=== PATIENT | female | born 1945 | race Caucasian/White ===

== ENCOUNTER → 2024-05-09 | Outpatient (CLI) | payer MEDICARE ==
[2024-05-09 10:54] LABS: ALBUMIN 3.1 g/dL (3.5-5.0); BILIRUBIN,TOTAL 0.5 mg/dL (0.2-1.0); CREATININE 1.1 mg/dL (0.5-1.0); POTASSIUM 3.7 mmol/L (3.5-5.1); TOTAL PROTEIN, SERUM 6.2 g/dL (6.0-8.3)
== END | disposition home or self-care (01) ==
LOC: LAB 09:21
PROVIDERS: ATTEND Student in an Organized Health Care Education/Training Program
DX: E78.2 Mixed hyperlipidemia (principal); R94.31 Abnormal electrocardiogram [ECG] [EKG]
CPT/HCPCS: 36415; 80053; 80061

== ENCOUNTER → 2024-05-16 | Outpatient (CLI) | payer MEDICARE ==
[~2024-05-16] MED LIST: IOHEXOL-350 50ML VIAL IV ONE; IOHEXOL-350 75 ML VIAL IV ONE; metoPROLOL tartRATE 1 MG/ML 5ML VIAL IV ONE
--- NOTE | 2024-05-16 12:24 | HMCIMG ---
CT CARDIAC ANGIO W/CONT. CCTA REASON: ABNORMAL EKG,ECG COMPARISON: None TECHNIQUE: Images are obtained through the heart in the axial plane before and during bolus IV contrast infusion, 100 cc Omnipaque 350. 2-D and 3-D multiplanar reconstruction images were then performed. The injection had to be repeated once due to motion artifact on the first sequence, total contrast volume was 200 cc. FINDINGS: This dictation is for the noncardiac findings only. Cardiac and coronary artery findings are reported separately. Visualized portions of the lungs are clear. There is normal-appearing pulmonary interstitium. There is no hilar or mediastinal lymphadenopathy. Chest wall structures appear unremarkable. IMPRESSION: 1. Unremarkable noncardiac portions of CT cardiac angiography.
== END | disposition home or self-care (01) ==
LOC: RAH 10:49 → EDUNIT# 11:00
PROVIDERS: ATTEND Student in an Organized Health Care Education/Training Program
DX: R94.31 Abnormal electrocardiogram [ECG] [EKG] (principal)
CPT/HCPCS: 75574; J3490; Q9967 ×2

== ENCOUNTER 2024-09-16 16:13 | Emergency (ER) | payer MEDICARE ==
[~2024-09-16] VITALS: Ht 157.5 cm; Wt 64.4 kg
[2024-09-16 17:20] LABS: BASOPHILS # (AUTO) 0.14 K/uL (0.00-0.20); BASOPHILS % (AUTO) 1.8 % (0.0-5.0); EOSINOPHILS # (AUTO) 0.37 K/uL (0.00-0.70); EOSINOPHILS % (AUTO) 4.7 % (0.0-8.0); HEMATOCRIT 38.5 % (36-48); IMMATURE GRANULOCYTE ABSOLUTE 0.03 K/uL (0-1); LYMPHOCYTES % (AUTO) 25.9 % (21.0-51.0); MEAN CORPUSCULAR HEMOGLOBIN 30.3 pg (27.0-33.0); MEAN CORPUSCULAR HGB CONC 32.5 g/dL (32.0-36.0); MEAN CORPUSCULAR VOLUME 93.4 fL (79-99); MONOCYTES # (AUTO) 0.9 K/uL (0.1-1.0); MONOCYTES % (AUTO) 11.2 % (3.0-13.0); NEUTROPHILS # (AUTO) 4.4 K/uL (1.8-7.7); PLATELET COUNT (AUTO) 247 K/uL (130-400); RED BLOOD CELL COUNT(AUTO) 4.12 MIL/uL (4.00-5.50); RED CELL DISTRIBUTION WIDTH 13.8 % (11.0-15.5); WHITE BLOOD COUNT (AUTO) 7.9 K/uL (4.8-10.8)
[2024-09-16 17:32] LABS: CREATININE 1.1 mg/dL (0.5-1.0)
--- NOTE | 2024-09-16 19:33 | HMCIMG ---
Exam Type: US VENOUS DOPPLER UNILATERAL Clinical Information: r/o dvt Comparison: None Findings: The examination shows normal deep venous system. There is normal compressibility at all levels. There is no intraluminal clot. There is no occlusion. Adequate response is obtained on augmentation. Impression: No evidence of DVT.
[2024-09-16] MEDS ORDERED: CEPH500B PO (19:44)
--- NOTE | 2024-09-16 19:46 | ERN ---
ED Note History of Present Illness Stated Complaint: SENT BY DOCTOR Chief Complaint: Lower Extremity Pain/Injury Time Seen by MD: 16:24 Time Seen by Midlevel: 16:30 Dictation: 78-year-old female coming in referred by PCP for evaluation of right lower e xtremity pain onset a couple of weeks ago. Patient denies having any fevers, nausea, vomiting. Allergies: Coded Allergies: No Known Allergies (Unverified Allergy, Unknown, 09/16/24) Past Medical History Past Medical History: Asthma, High Cholesterol, Heart Disease, Hypertension, [place] Surgical History: Hysterectomy, Other Surgical History Other: ABD CYST Review of System Dictation Constitutional: Negative for fever,chills, and weight loss Eyes: Negative for injury, pain,redness, and discharge ENT: Negative for injury,pain or swelling Cardiovascular: Negative for chest pain, palpitations, and edema Respiratory: Negative for shortness of breath, cough, and wheezing, Abdomen/GI: Negative for abdominal pain, nausea, vomiting, diarrhea, and constipation Back: Negative for injury and pain : Negative for injury, bleeding and discharge MS/Extremity: Negative for injury and deformity, right lower leg swelling Skin: Negative for rash, and discoloration Neuro: Negative for headache, weakness, numbness, tingling, and seizure Psych: Negative for suicide ideation, homicidal ideation, and hallucinations Review of Systems: was completed Initial Vital Sign VS Vital Signs Date Time Temp Pulse Resp B/P (MAP) Pulse Ox O2 Delivery O2 Flow Rate FiO2 09/16/24 16:16 97.7 64 16 131/65 97 Room Air 0 Physical Exam Dictation General: awake, alert, NAD Head/Face: Normocephalic, atraumatic Eyes: PERRL, EOMI, vision at baseline ENT: oral cavity clear, TMs clear, no signs of infection Neck: Trachea midline, supple, no nuchal rigidity Cardiovascular: RRR, normal S1/S2, No MRGs, no JVD Respiratory: CTAB, no respiratory distress, No rales or wheezes Abdomen: Soft, non-tender, non-distended, normal bowel sounds, no guarding or rebound. Skin: Warm, dry, normal turgor, no rash, there is mild erythema noted to the right lower leg with swelling. No fluctuance, no open wound no discoloration MS/Extremity: Pulses equal, no cyanosis, neurovascular intact, FROM Neuro: COAx4, GCS 15, strength 5/5, CN 2-12 intact, normal cerebellar exam, normal gait, Psych: Normal behavior, mood, and affect normal Results (Laboratory/Radiology) Laboratory/Radiology Laboratory Tests Test 09/16/24 17:11 White Blood Count 7.9 K/uL (4.8-10.8) Red Blood Count 4.12 MIL/uL (4.00-5.50) Hemoglobin 12.5 g/dL (12.0-16.0) Hematocrit 38.5 % (36-48) Mean Corpuscular Volume 93.4 fL (79-99) Mean Corpuscular Hemoglobin 30.3 pg (27.0-33.0) Mean Corpuscular Hemoglobin Concent 32.5 g/dL (32.0-36.0) Red Cell Distribution Width 13.8 % (11.0-15.5) Platelet Count 247 K/uL (130-400) Mean Platelet Volume 11.0 fL (7.5-10.5) H Immature Granulocyte % (Auto) 0.4 % (0-1) Neutrophils (%) (Auto) 56.0 % (40.0-77.0) Lymphocytes (%) (Auto) 25.9 % (21.0-51.0) Monocytes (%) (Auto) 11.2 % (3.0-13.0) Eosinophils (%) (Auto) 4.7 % (0.0-8.0) Basophils (%) (Auto) 1.8 % (0.0-5.0) Neutrophils # (Auto) 4.4 K/uL (1.8-7.7) Lymphocytes # (Auto) 2.0 K/uL (1.0-4.8) Monocytes # (Auto) 0.9 K/uL (0.1-1.0) Eosinophils # (Auto) 0.37 K/uL (0.00-0.70) Basophils # (Auto) 0.14 K/uL (0.00-0.20) Absolute Immature Granulocyte (auto 0.03 K/uL (0-1) Nucleated Red Blood Cells 0.0 % (0.0-0.19) Sodium Level 144 mmol/L (136-145) Potassium Level 4.0 mmol/L (3.5-5.1) Chloride Level 107 mmol/L (101-111) Carbon Dioxide Level 31 mmol/L (21-32) Blood Urea Nitrogen 23 mg/dL (7-18) H Creatinine 1.1 mg/dL (0.5-1.0) H Glomerular Filtration Rate Calc 52 mL/min (>90) Random Glucose 80 mg/dL (70-105) Lactic Acid Level 1.1 mmol/L (0.8-2.5) Total Calcium 9.4 mg/dL (8.5-10.1) Labs Reviewed?: Yes ED Course ED Course Orders Procedure Category Date Status Time Cbc With Differential LAB 09/16/24 Complete 16:50 Basic Metabolic Panel LAB 09/16/24 Complete 16:50 Lactic Acid LAB 09/16/24 Complete 16:50 Blood Cult ZIA 09/16/24 In Process 16:50 Us Venous Doppler US 09/16/24 Resulted Unilateral 19:05 Vital Signs Date Time Temp Pulse Resp B/P (MAP) Pulse Ox O2 Delivery O2 Flow Rate FiO2 09/16/24 16:16 97.7 64 16 131/65 97 Room Air 0 Medical Decision Making MDM MDM: 78-year-old female coming in referred by PCP for evaluation of right lower extremity pain onset a couple of weeks ago. Patient denies having any fevers, nausea, vomiting. Blood work unremarkable. Patient does not have any white count. Ultrasound shows negative for DVT. Patient will be discharged with antibiotics to prevent possible early cellulitis. Discussed with the patient to start antibiotics in and if 2-3 days she isn't see difference to follow up with PCP. Patient verbalized understanding, answered all questions. Differential diagnosis: Cellulitis, DVT, insect bite Rationale: Tests considered and ordered secondary to shared decision making include: Previous outside records reviewed: Old ER visits. Risk of complication and/or morbidity or mortality of patient management: None Medications-Per medication reconciliation Need for hospitalization: Patient does not meet criteria for hospitalization. Need for emergency major/minor surgery: No There are no social concerns with this patient. Prescription drug management Prescriptions will include symptomatic care Patient's prior external medical records from other ER visits were reviewed by me as indicated. Prior testing and results from previous visits were reviewed. Prior tests were taken into account with medical decision making and resource utilization, independent historian/historians were used to obtain complete [facility] history. I independently interpreted the test that were performed, results were reviewed by me and considered findings on radiology if ordered. Medical management and examination interpretation discussions were had by me with other qualified healthcare professionals as indicated for the patient's care. DX & DISP Disposition: Discharge Departure Impression: Primary Impression: Cellulitis Condition: Stable Scripts Cephalexin Monohydrate (Keflex) 500 Mg Cap 500 MG PO QID for 5 Days, #28 CAP Prov: NADIA FARMER COMMUTATOR INSPECTOR 09/16/24 Additional Instructions: Start your antibiotics. If no change in 1-2 days please follow up with your PCP. Referrals: SELF,THERESA Garcia MD (PCP) Time of Disposition: 19:45 I have reviewed the case, and I agree with, Diagnosis and Plan NADIA FARMER NP September 16, 2024 19:46
[2024-09-16 19:51] VITALS: BP 129/68; PULSE 71; RESP 18; TEMP 97.8; O2SAT 99
== END 2024-09-16 19:52 | disposition home or self-care (01) ==
LOC: EDH 16:13
DX: L03.115 Cellulitis of right lower limb (principal); J45.909 Unspecified asthma, uncomplicated; E78.00 Pure hypercholesterolemia, unspecified; I10 Essential (primary) hypertension; I25.2 Old myocardial infarction; Z90.710 Acquired absence of both cervix and uterus
CPT/HCPCS: 36415; 80048; 83605; 85025; 87040; 93971; 99284

== ENCOUNTER 2024-10-01 16:25 | Emergency (ER) | payer MEDICARE ==
[~2024-10-01] VITALS: Ht 157.5 cm; Wt 67.1 kg
[~2024-10-01 16:25] MED LIST changes: +CEPH500B PO; -IOHEXOL-350 50ML VIAL IV ONE; -IOHEXOL-350 75 ML VIAL IV ONE; -metoPROLOL tartRATE 1 MG/ML 5ML VIAL IV ONE
[2024-10-01 17:08] LABS: PROTHROMBIN TIME 10.6 SEC (9.6-11.6)
[2024-10-01 17:10] LABS: PARTIAL THROMBOPLASTIN TIME 26.5 SEC (26.3-35.5)
[2024-10-01 17:11] LABS: BASOPHILS # (AUTO) 0.12 K/uL (0.00-0.20); BASOPHILS % (AUTO) 1.6 % (0.0-5.0); EOSINOPHILS # (AUTO) 0.28 K/uL (0.00-0.70); EOSINOPHILS % (AUTO) 3.7 % (0.0-8.0); HEMATOCRIT 38.1 % (36-48); IMMATURE GRANULOCYTE ABSOLUTE 0.02 K/uL (0-1); LYMPHOCYTES # (AUTO) 1.9 K/uL (1.0-4.8); LYMPHOCYTES % (AUTO) 25.5 % (21.0-51.0); MEAN CORPUSCULAR HEMOGLOBIN 29.6 pg (27.0-33.0); MEAN CORPUSCULAR VOLUME 92.5 fL (79-99); NEUTROPHILS # (AUTO) 4.2 K/uL (1.8-7.7); NEUTROPHILS % (AUTO) 55.9 % (40.0-77.0); PLATELET COUNT (AUTO) 212 K/uL (130-400); RED BLOOD CELL COUNT(AUTO) 4.12 MIL/uL (4.00-5.50); RED CELL DISTRIBUTION WIDTH 14.1 % (11.0-15.5); WHITE BLOOD COUNT (AUTO) 7.5 K/uL (4.8-10.8)
[2024-10-01 17:15] LABS: MAGNESIUM 1.7 mg/dL (1.80-2.40)
--- NOTE | 2024-10-01 17:16 | HMCIMG ---
PORTABLE CHEST RADIOGRAPH INDICATION: CP COMPARISON: None FINDINGS: Heart size is normal. Mild calcific plaque is present along the aortic arch montiel. The pulmonary vascularity and power appear normal. No abnormal pulmonary parenchymal opacity or consolidation identified. No significant pleural effusion noted. No pneumothorax detected. IMPRESSION: No radiographic evidence for any acute cardiopulmonary process.
[2024-10-01 17:30] LABS: B-TYPE NATRIURETIC PEPTIDE 270 pg/mL (0-100)
[2024-10-01 17:34] LABS: APPEARANCE,URINE CLEAR (CLEAR); BILIRUBIN,URINE NEGATIVE (NEGATIVE); COLOR,URINE LIGHT-YELLOW (YELLOW); GLUCOSE, URINE (UA) NEGATIVE (NEGATIVE); KETONES,URINE NEGATIVE (NEGATIVE); LEUKOCYTE ESTERASE ,URINE NEGATIVE Leu/uL (NEGATIVE); NITRATE,URINE NEGATIVE (NEGATIVE); OCCULT BLOOD,URINE NEGATIVE (NEGATIVE); PH,URINE 6.5 (5.0-8.0); PROTEIN,URINE NEGATIVE (NEGATIVE); UROBILINOGEN,URINE 0.2 mg/dL (0.2-1.0)
[2024-10-01 17:44] LABS: ADD UA MICROSCOPIC NO
--- NOTE | 2024-10-01 18:17 | ERN ---
General Chief Complaint: Shortness of Breath Stated Complaint: SOB Time Seen by MD: 16:30 Source: patient History of Present Illness Initial Comments Patient is a 78-year-old female coming in with shortness of breath. Patient states he has a history of asthma and frequently presents with shortness of breath. Today she states he fell worse EMS put her on 2 L of oxygen as he st ates he does not use oxygen at home. Allergies: Coded Allergies: No Known Allergies (Unverified Allergy, Unknown, 09/16/24) Home Meds Active Scripts Cephalexin Monohydrate (Keflex) 500 Mg Cap, 500 MG PO QID for 5 Days, #28 CAP Prov:NADIA FARMER FARMWORKER GRAIN 09/16/24 Past Medical History Past Medical History: Asthma, High Cholesterol, Hypertension Past Surgical History: Other Surgical History Other: CYST REMOVAL ROS Dictation CONSTITUTIONAL: No chills, no fever, no weakness, no diaphoresis, no malaise. HEAD/FACE: No signs of trauma. EENT: No eye pain, no blurred vision, no tearing, no double vision, no ear pain, no ear discharge, no nose pain, no nasal congestion, no throat pain, no throat swelling, no mouth pain. RESPIRATORY: No cough, no orthopnea, no SOB, no stridor, wheezing. CARDIOVASCULAR: No chest pain, no edema, no palpitations, no syncope. GASTROINTESTINAL/ABDOMINAL: No abdominal pain, no constipation, no diarrhea, no nausea, no vomiting. GENITOURINARY: No abnormal discharge, no dysuria, no frequent urination, no hematuria. No complaints of pain in the genitals. MUSCULOSKELETAL: No back pain, no gout, no joint pain, no joint swelling, no muscle pain, no muscle stiffness, no neck pain. INTEGUMENTARY: No change in color, no change in hair/nails, no dryness, no lesion, no lumps, no rash. NEUROLOGICAL/PSYCH: No anxiety, not depressed, no emotional problem, no headache, no numbness, no pre-existing deficit, no history of seizures, no tremors, no weakness. HEMATOLOGIC/LYMPHATIC: Not anemic, no history of blood clots, no apparent bleeding, no bruising, glands not swollen. All Systems Negative, Except as Noted. Physical Exam Physical Exam Dictation VITAL SIGNS: Reviewed. GENERAL APPEARANCE: Alert, oriented x3, no acute distress, obese. HEAD AND FACE: Non-traumatic. EYES: PERRL, pink conjunctivas, eyelid no trauma, anterior chamber clear. EARS: Pinnas intact and no signs of trauma or erythema. Ear canals clear and no discharge. TMs no erythema. NOSE: No discharge, no bleeding. OROPHARYNX: Mouth normal, teeth no caries, tongue pink. Pharynx clear, no erythema. Tonsils no exudates, no abscesses noted. Mucous membrane moist. NECK: Supple, non-tender, no thyromegaly, no masses, no JVD, no bruits. BREAST: Deferred. CHEST: No tenderness, no crepitus, no paradoxical movement, no retractions. LUNGS: Clear, well-ventilated, symmetric, rales, wheezing, no rhonchi, no stridor, good breath sounds bilaterally. HEART: Regular rate, regular rhythm, no murmur, no gallops. VASCULAR: No peripheral edema. ABDOMEN: Soft, positive bowel sounds, nondistended, no guarding, nontender, no rebound, no masses no hepatomegaly, no splenomegaly, no Yen's sign, no hernias. RECTAL: Deferred. GENITAL: Deferred. NEUROLOGICAL: Normal speech, gross motor function intact, gross sensory function intact. MUSCULOSKELETAL: Neck nontender, full range of motion, back nontender, full range of motion. EXTREMITIES: Nontender, full range of motion. SKIN: Color pink, dry, no turgor, no rash, no lacerations, no abrasions, no contusions. LYMPHATICS: Deferred. Results Laboratory and Microbiology Lab and Micro Result Laboratory Tests Test 10/01/24 16:50 10/01/24 17:10 White Blood Count 7.5 K/uL (4.8-10.8) Red Blood Count 4.12 MIL/uL (4.00-5.50) Hemoglobin 12.2 g/dL (12.0-16.0) Hematocrit 38.1 % (36-48) Mean Corpuscular Volume 92.5 fL (79-99) Mean Corpuscular Hemoglobin 29.6 pg (27.0-33.0) Mean Corpuscular Hemoglobin Concent 32.0 g/dL (32.0-36.0) Red Cell Distribution Width 14.1 % (11.0-15.5) Platelet Count 212 K/uL (130-400) Mean Platelet Volume 11.5 fL (7.5-10.5) H Immature Granulocyte % (Auto) 0.3 % (0-1) Neutrophils (%) (Auto) 55.9 % (40.0-77.0) Lymphocytes (%) (Auto) 25.5 % (21.0-51.0) Monocytes (%) (Auto) 13.0 % (3.0-13.0) Eosinophils (%) (Auto) 3.7 % (0.0-8.0) Basophils (%) (Auto) 1.6 % (0.0-5.0) Neutrophils # (Auto) 4.2 K/uL (1.8-7.7) Lymphocytes # (Auto) 1.9 K/uL (1.0-4.8) Monocytes # (Auto) 1.0 K/uL (0.1-1.0) Eosinophils # (Auto) 0.28 K/uL (0.00-0.70) Basophils # (Auto) 0.12 K/uL (0.00-0.20) Absolute Immature Granulocyte (auto 0.02 K/uL (0-1) Nucleated Red Blood Cells 0.0 % (0.0-0.19) Prothrombin Time 10.6 SEC (9.6-11.6) Prothromb Time International Ratio 1.00 (0.85-1.15) Activated Partial Thromboplast Time 26.5 SEC (26.3-35.5) Sodium Level 143 mmol/L (136-145) Potassium Level 4.0 mmol/L (3.5-5.1) Chloride Level 107 mmol/L (101-111) Carbon Dioxide Level 28 mmol/L (21-32) Blood Urea Nitrogen 24 mg/dL (7-18) H Creatinine 1.0 mg/dL (0.5-1.0) Glomerular Filtration Rate Calc 58 mL/min (>90) Random Glucose 116 mg/dL (70-105) H Total Calcium 9.0 mg/dL (8.5-10.1) Magnesium Level 1.70 mg/dL (1.80-2.40) L Total Creatine Kinase 105 U/L (21-232) Troponin I High Sensitivity 14 ng/L (4-50) B-Type Natriuretic Peptide 270 pg/mL (0-100) H Triglycerides Level 117 mg/dL (30-200) Cholesterol Level 112 mg/dL (<200) LDL Cholesterol 35 mg/dL (0-99) HDL Cholesterol 69 mg/dL (35-85) Urine Color LIGHT-YELLOW (YELLOW) Urine Appearance CLEAR (CLEAR) Urine pH 6.5 (5.0-8.0) Urine Specific [place] 1.016 (1.001-1.031) Urine Protein NEGATIVE mg/dL (NEGATIVE) Urine Glucose (UA) NEGATIVE mg/dL (NEGATIVE) Urine Ketones NEGATIVE mg/dL (NEGATIVE) Urine Occult Blood NEGATIVE (NEGATIVE) Urine Nitrate NEGATIVE (NEGATIVE) Urine Bilirubin NEGATIVE mg/dL (NEGATIVE) Urine Urobilinogen 0.2 mg/dL (0.2-1.0) Urine Leukocyte Esterase NEGATIVE Nannette/uL Labs Reviewed?: Yes EKG/XRAY/US/CT/MRI EKG Comment 10/01/2024 time 5:36 p.m. Ventricular rate 68 Sinus rhythm [place] [address] wave elevation or depression X-RAY Comment [id number] [address] IMAGING REPORT Signed PATIENT: KYLEIGH YO MR#: [id number] : 1945 SEX: F AGE: 78 LOCATION: [facility] ORDER 31 STATUS: [facility] ER REPORT#: [id number] SERVICE [id number] REASON: CP ORDERING PHYSICIAN: AAMIR BIRMINGHAM MD PROCEDURE: CXR1VW - CHEST 1VW PORTABLE CHEST RADIOGRAPH INDICATION: CP COMPARISON: None FINDINGS: Heart size is normal. Mild calcific plaque is present along the aortic arch montiel. The pulmonary vascularity and power appear normal. No abnormal pulmonary parenchymal opacity or consolidation identified. No significant pleural effusion noted. No pneumothorax detected. IMPRESSION: No radiographic evidence for any acute cardiopulmonary process. DICTATED BY: ORLANDO EL MD DATE: 10/01/241712 ELECTRONICALLY SIGNED BY: ORLANDO EL MD DATE: 10/01/241715 [facility] MDM: Differential diagnosis: Asthma, COPD exacerbation, Rationale: Tests considered and ordered secondary to shared decision making include: labs, ECG and radiology Previous outside records reviewed: Old ER visits. Risk of complication and/or morbidity or mortality of patient management: None Medications-Per medication reconciliation Need for hospitalization: Patient does meet criteria for hospitalization. Need for emergency major/minor surgery: No There are no social concerns with this patient. Prescription drug management Prescriptions will include symptomatic care Patient's prior external medical records from other ER visits were reviewed by me as indicated. Prior testing and results from previous visits were reviewed. Prior tests were taken into account with medical decision making and resource utilization, independent historian/historians were used to obtain complete medi sharri history. I independently interpreted the test that were performed, results were reviewed by me and considered findings on radiology if ordered. Medical management and examination interpretation discussions were had by me with other qualified healthcare professionals as indicated for the patient's care. Patient received a bolus of IV steroids and then nebulizer treatment with DuoNebs. Her lungs have opened up and she feels much better now she feels she can clear her throat. Also she is saturating above 95% on room air. She would like to go home and I will discharge her. ED Course Orders Procedure Category Date Status Time Cbc With Differential LAB 10/01/24 Complete 16:30 Prothrombin Time With LAB 10/01/24 Complete INR 16:30 B-Type Natriuretic LAB 10/01/24 Complete Peptide 16:30 Lipid Panel LAB 10/01/24 Complete 16:30 Chest 1vw RAD 10/01/24 Resulted 16:30 12 Lead Ekg Tracing- EKG 10/01/24 Complete Technical 16:30 Magnesium LAB 10/01/24 Complete 16:30 Creatine Kinase, Total LAB 10/01/24 Complete 16:30 Troponin I High LAB 10/01/24 Complete Sensitivity 16:30 Urinalysis Profile LAB 10/01/24 Complete 16:30 Partial LAB 10/01/24 Complete Thromboplastin Time 16:30 Basic Metabolic Panel LAB 10/01/24 Complete 16:30 Methylprednisolone PHA 10/01/24 Complete Succ 125mg (Solu-Medr 18:30 Ipratropium/Albuterol PHA 10/01/24 Complete Neb (Duoneb) 18:30 Albuterol 0.083% PHA 10/01/24 Complete 2.5mg/3ml (Proventil 19:00 Current Medications Medications (Trade) Dose Ordered Sig/Ryan Route PRN Reason Start Time Stop Time Status Last Admin Dose Admin Albuterol (DUOneb) 1 udvial ONCE ONCE IH 10/01/24 18:30 10/01/24 18:31 DC 10/01/24 19:36 Albuterol Sulfate (Proventil 0.083% 2.5mg/3ml) 1 mg ONCE ONCE IH 10/01/24 19:00 10/01/24 19:01 DC 10/01/24 19:43 Methylprednisolone Sodium Succinate (Solu-medROL 125MG) 125 mg ONCE ONCE IVP 10/01/24 18:30 10/01/24 18:31 DC 10/01/24 18:54 Vital Signs Date Time Temp Pulse Resp B/P (MAP) Pulse Ox O2 Delivery O2 Flow Rate FiO2 10/01/24 19:43 68 20 10/01/24 19:37 98.4 68 18 138/62 99 Room Air* 0 21 10/01/24 19:33 66 24 10/01/24 18:11 98.2 76 22 134/46 96 Nasal Cannula* 1 24 10/01/24 17:08 69 22 135/55 95 Nasal Cannula* 1 24 10/01/24 16:32 98.2 63 20 156/69 99 Nasal Cannula 3.0 DX & DISP Disposition: Discharge Departure Impression: Primary Impression: Asthma exacerbation Condition: Stable Additional Instructions: You have had an exacerbation of her asthma. Please follow-up with her primary care physician as you may need to add a 2nd medication to your asthma treatment plan. Currently your only using albuterol and you may need to add Duo nebs or other medications to help keep her asthma at bay. Feel free to return if you experience another exacerbation of your asthma. Referrals: VIKA DOS SANTOS MD (PCP) AAMIR BIRMINGHAM MD October 01, 2024 18:17 INDU WERNER MD October 01, 2024 20:04
[2024-10-01] MEDS: Solu-medROL 125MG VIAL IVP ONE (18:54)
[2024-10-01 19:33] VITALS: PULSE 66; RESP 24
[2024-10-01] MEDS: IpraTROPium/alBUTERol SULFATE 3 ML SOLUTION IH ONE (19:36)
[2024-10-01 19:43] VITALS: PULSE 68; RESP 20
[2024-10-01] MEDS: ALBUTEROL 0.083% 2.5 MG/3 ML INH IH ONE (19:43)
--- NOTE | 2024-10-01 19:52 | EKG ---
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
[2024-10-01 20:08] VITALS: PULSE 78; RESP 19
[2024-10-01] MEDS: BUDESONIDE 0.5 MG/2 ML INH IH ONE (20:08)
[2024-10-01 20:31] VITALS: BP 128/58; PULSE 74; RESP 20; TEMP 98.5; O2SAT 97
[2024-10-02] MEDS ORDERED: BUDESONIDE 0.5 MG/2 ML INH IH SCH (06:00)
== END 2024-10-01 20:53 | disposition home or self-care (01) ==
LOC: EDH 16:25
DX: J45.901 Unspecified asthma with (acute) exacerbation (principal); E78.00 Pure hypercholesterolemia, unspecified; I10 Essential (primary) hypertension; Z79.899 Other long term (current) drug therapy
CPT/HCPCS: 94640 ×3; 99285; 82550; 83735; 84484; 80061; 80048; 83880; 85025; 85610; 85730; 81003; 36415; 71045; 96374; 93005; J2919